=== PATIENT | male | born 1945 | race Caucasian/White ===

== ENCOUNTER 2016-06-08 10:19 | Inpatient (IN) | payer MEDICARE, OTHER ==
[~2016-06-08] VITALS: Ht 190.5 cm; Wt 132.7 kg
[~2016-06-08 10:19] MED LIST: ALBUTEROL-200 PUFFS/ IH; AMITRIPTYLINE 225 MG PO; AMITRIPTYLINE 550 MG PO; ASPIRIN 81MG TA81 MG PO; ASPIRIN EC325 MG PO; ATIVAN GENERIC0.5 MG PO; BACLOFEN20 MG PO; BISOPROLOL 5MG T5 MG PO; BUMETANIDE0.5 MG PO; CARVEDILOL6.25 MG PO; DOXYCYCLINE100 M6 PO; FLONASE 50 MCG16 GM; FUROSEMIDE40 MG PO; GABAPENTIN300 M1 PO; GLIMEPIRIDE 2MG2 MG PO; GUAIFENESIN 600 MG PO; HUMALOG100 U/ML SC; HYDROCODONE/ACE1 TA5 PO; IPRATROPIUM BROM3 M1 IH; JANUVIA50 MG PO; LASIX20 MG PO; LEVOFLOXACIN 5500 MG PO; LEVOFLOXACIN 7750 M1 PO; LIPITOR40 MG PO; LISINOPRIL 20MG20 MG PO; LISINOPRIL2.5 MG PO; LORAZEPAM0.5 MG/TAB PO; MAG-OX 400MG T400 MG PO; METFORMIN HCL1000 MG PO; NORTRIPTYLINE H75 MG PO; NYSTATIN SU60 ML/BOT PO; ONGLYZA5 MG PO; PACERONE200 MG PO; PANTOPRAZOLE SO40 M1 PO; PERCOCET 10 MG1 EACH PO; PLAVIX75 MG PO; PREDNISONE 20MG20 MG PO; PREDNISONE 5MG.5 MG PO; PROAIR HFA0.09 MG/AC IH; RANITIDINE HCL300 M1 PO; RESTORIL 15MG C15 MG PO; TAMSULOSIN HYD0.4 MG PO; TRAZODONE50 MG PO
[2016-06-08 10:21] VITALS: BP 159/85
--- NOTE | 2016-06-08 10:35 | Emergency Room Report ---
History of Present Illness Time Seen by 1021 Presenting Problem in Triage Pt arrived:Ambulance Stretcher Presenting Problem:PT SLID OUT OF CHAIR AT HOME. STATES HE HAS BEEN SHAKY, UNSTEADY, DIZZY FOR PAST COUPLE OF WEEKS. STATES TAKING ANTIBIOTICS FOR BRONCHITIS. STATES HAVING DEFIBRILLATOR. 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 Y Clinical Suspician of Infection? Y Mental Status: 1 - Regular (Normal Baseline) Sepsis Risk:Possible Sepsis Risk Have you (or family members/close friends) recently traveled outside the [place]? N If Yes, where/when: Have you had exposure to infectious disease within the past month? N TB? Other? Specify: Comment The patient complains of being weak and dizzy. He apparently slid out of her chair at home. He is brought in by ambulance. He says that he had a fever a couple of days ago and was put on amoxicillin by Dr. Umanzor. He says that he has a chronic cough due to bronchiectasis. He also says that he has chronic back pain and shoulder pain and is on oxycodone for that. No recent spinal injections , he says the last spinal injection he had was last October. He says his back pain goes away with rest. He denies vomiting or diarrhea. He denies any other pain. ALLERGIES Coded Allergies: enoxaparin (From LOVENOX) (I-HIVES 07/06/15) Home Medications Active Scripts HYDROCODONE/ACETAMINOPHEN (Hydrocodon-Acetaminophn 10-325) 1 TAB PO Q4HP PRN BREAKTHROUGH MOD TO SEV PAIN #100 TAB Prov: 05/15/13 Reported Medications Simvastatin 40 MG PO DAILY Fluticasone Propionate (Flonase 50 Mcg Nasal [place]) 1 SPRAY NA DAILY #16 NORTRIPTYLINE HCL (Nortriptyline Hydrochloride) 50 MG PO NIGHTLY Glimepiride (Glimepiride 2MG Tablet) 1 MG PO DAILY BISOPROLOL FUMARATE (Bisoprolol 5MG) 10 MG PO DAILY Gabapentin (Gabapentin 300MG) 300 MG PO TID Prednisone (Prednisone 20MG) 20 MG PO DAILY DIPHENOXYLATE HCL/ATROPINE (Lomotil 2.5-0.025 MG Tablet) 1 TAB PO Q4HS PRN DIARRHEA Lorazepam (Ativan) 0.5 MG PO TIDP PRN ANXIETY TAMSULOSIN HCL (Tamsulosin 0.4MG) 0.4 MG PO QHS Amiodarone Hcl (Pacerone) 200 MG PO BID History Medical History General CAD? No Angina: No [place]: No Hypertension? Yes Hyperlipidemia? Yes CHF? Yes DVT? No PE? No COPD? Yes Asthma? Yes Anemia? No GERD? Yes Gastric ulcers? No GI Bleed? No Hernia? No Thyroid Problems? No Hypothyroidism? No CVA? No Seizures? No Diabetes? Yes Insulin Dependent: No Insulin Pump: No Home FSBS? Yes Renal Insuffiency? No End Stage Renal Disease? No UTI? No Stones? No BPH? Yes GB Disease: No Nephritic Syndrome? No Asplenia? No Hepatitis? No Sickle Cell Disease? No Arthritis? Yes Migraines? No Cataracts? No Glaucoma? No MRSA? No HIV? No TB? No Anxiety? No Depression? No Cancer? No More? Yes Additional hx: RHEUMATIOD ARTHRITIS Immunization Hx DT/Tetanus < 1 Year Ago Flu [id number] Flu Season Pneumonia Received In Past Surgical Hx Previous Surgery?Y LUNG REMOVED SINUS HEART ANKLE THROAT DEFRIBULATORY PACER/DEFIB PLACE 08/15/14 Family History Family Hx Diabetes Yes CAD Yes Hypertension Yes Hyperlipidemia No Cancer Yes TB No Social History Smoking Hx Smoker: Former Smoker Tobacco: No Packs/day < 1 Pack Alcohol Alcohol: No Review of Systems All Other Systems Reviewed and Negative Constitutional fever, malaise, weakness Respiratory cough Musculoskeletal back pain, joint pain (shoulder) Physical Exam Vital Signs Vital Signs Date Time Temp Pulse Resp B/P Pulse O2 O2 Flow FiO2 Ox Delivery Rate 06/08 1021 103.1 78 20 159/85 92 General Appearance normal appearance, WD/WN Eye Exam - bilateral eye normal exam, bilateral eye PERRL, bilateral eye EOMI Ear, Nose, Throat hearing grossly normal, normal ENT inspection Neck normal inspection, non-tender, supple, full range of motion Respiratory Status Yes: trachea midline, chest symmetrical, non tender chest. No: respiratory distress. Lung Sounds bilateral: normal breath sounds, lungs clear. Cardiovascular normal exam, regular rate/rhythm, no peripheral edema, no gallop, no JVD, no murmur, no rub, normal peripheral pulses Peripheral Pulses Pulses normal Yes Gastrointestinal normal bowel sounds, normal exam, non tender, soft, no organomegaly Back normal inspection, no CVA tenderness, no vertebral tenderness Extremities non-tender, normal range of motion, normal inspection Neurologic alert, exhibit specialist II-XII nml as tested, normal exam, oriented x 3 Mental status normal mood/affect Skin intact, normal color, warm/dry Lymphatic no adenopathy Medical Decision Making LABS/Meds/Orders Pt receiving controlled substance in ED? No Results/Orders Laboratory Tests 06/08/16 1040: Influenza Type A Ag NOT DETECTED, Influenza Type B Ag NOT DETECTED, Urine Color YELLOW, Urine Appearance CLEAR, Urine pH 6.0, Ur Specific [place] 1.020, Urine Protein NEGATIVE, Urine Ketones NEGATIVE, Urine Blood NEGATIVE, Urine Nitrate NEGATIVE, Urine Bilirubin NEGATIVE, Urine Urobilinogen 0.2, Ur Leukocyte Esterase NEGATIVE, Urine WBC OCC, Ur Squamous Epith Cells OCC, Urine Bacteria 1+ , Hyaline Casts 3-5, Urine Mucus OCC, Urine Glucose NEGATIVE 06/08/16 1030: Lactic Acid 2.1 H 06/08/16 1030: Sodium 135 L, Potassium 5.1, Chloride 99, Carbon Dioxide 28, BUN 23 H, Creatinine 1.4 H, Estimated Creat Clear 90, Estimated GFR (MDRD) 50, Glucose 175 H, Calcium 8.6, Total Bilirubin 0.4, AST 15, ALT 31, Alkaline Phosphatase 84, Total Protein 6.5, Albumin 2.9 L, Globulin 3.6 H, Albumin/Globulin Ratio 0.8 L, WBC 18.3 H, RBC 3.84 L, Hgb 10.6 L, Hct 34.8 L, MCV 90.8, RDW 13.6, Plt Count 360, MPV 5.8 L, Gran % 81.3 H, Gran # 15.0 H, Total Counted 100, Lymphocytes % 11.2, Monocytes % 4.6, Eosinophils % 2.7, Basophils % 0.3, Neutrophils 76, Lymphocytes (Manual) 11, Lymphocytes # 2.1, Monocytes (Manual) 8 , Monocytes # 0.9, Eosinophils # 0.5 H, Eosinophils # (Manual) 4 H, Basophils # 0.1, Promyelocytes 1, Platelet Estimate NORMAL, PUBS MCHC 30.1 L, MCH 27.3 Current Medication Orders Sig/Millie Start time Last Medication Dose Route Stop Time Status Admin Levofloxacin/Dextrose 150 ML .STK-MED ONE 06/08 1107 DC IV Levofloxacin/Dextrose 150 ML ONCE ONE 06/08 1100 r 06/08 IV 06/08 1229 1110 Acetaminophen 1,000 MG ONCE ONE 06/08 1045 DC 06/08 PO 06/08 1046 1037 Sodium Chloride 10 ML PRN PRN 06/08 1045 AC IV 06/09 1032 Acetaminophen 0 .STK-MED ONE 06/08 1028 DC PO Acetaminophen 0 .STK-MED ONE 06/08 1025 DC PO Orders Procedure Date/time Status Decision to admit 06/08 1113 Active UPPER RESPIRATORY PANEL, PCR 06/08 1111 Active LACTIC ACID FOLLOW UP 06/08 1058 Active CHEST-PORTABLE 06/08 1032 Active IV SALINE LOCK 06/08 1032 Active CULTURE, BLOOD 06/08 1032 Active URINALYSIS/COMPLETE 06/08 1032 Complete LACTIC ACID 06/08 1032 Complete INFLUENZA A&B ANTIGENS 06/08 1032 Complete CBC WITH AUTO DIFF 06/08 1032 Complete CHEM 12 PROFILE 06/08 1032 Complete DIFFERENTIAL-WBC 06/08 1030 Complete XRAY/CT/US XRAY/CT/US XRAY chest Comment X-ray interpreted by Spencer Fulton M.D.: RIGHT upper lobe infiltrate, cardiomegaly Progress - 11:10 AM: I have discussed the case with Dr. Nunez who agrees to admit the patient to the hospital. We discussed the patient's clinical information, including history, exam, laboratory and radiology results and ED course. Per hospital procedure, I will write temporary bridge inpatient orders on the patient. Specific orders requested by the admitting physician: Levaquin Departure Departure Disposition Still a Patient Clinical Impression Primary Impression: Community acquired pneumonia Condition STABLE Referrals Noé SCHULTZ,Jayesh Robledo (Family) ED Critical Care Critical Care No at [phone]
[2016-06-08 10:46] LABS: URINE BILIRUBIN - DIPSTICK NEGATIVE (NEG); URINE BLOOD NEGATIVE (NEG)
[2016-06-08] MEDS ORDERED: BISOPROLOL 5MG T5 MG PO (10:50)
[2016-06-08 10:53] LABS: LYMPH # 2.1 K/mm3 (0.7-4.5); LYMPH % 11.2 % (10-50)
[2016-06-08 10:55] LABS: URINE SQUAMOUS CELLS OCC #/hpf (OCC)
[2016-06-08] MEDS ORDERED: GABAPENTIN300 MG PO (10:57)
[2016-06-08] MEDS ORDERED: PREDNISONE 20MG20 MG PO (10:58)
[2016-06-08] MEDS ORDERED: LOMOTIL 0.025 M1 TAB PO (10:58)
[2016-06-08 11:01] LABS: HEMOGLOBIN 10.6 g/dL (14.1-18.0)
[2016-06-08 11:17] LABS: NEUTROPHILS 76 % (42-76)
[2016-06-08 11:41] LABS: CORONAVIRUS 229E NOT DETECTED (NOT DETECTE); CORONAVIRUS HKU 1 NOT DETECTED (NOT DETECTE); CORONAVIRUS NL63 NOT DETECTED (NOT DETECTE); CORONAVIRUS OC43 NOT DETECTED (NOT DETECTE); RHINOVIRUS/ENTEROVIRUS NOT DETECTED (NOT DETECTE)
[2016-06-08 11:58] VITALS: BP 139/64
[2016-06-08] MEDS ORDERED: HYDROCODONE/ACE1 TA5 PO (13:29)
--- NOTE | 2016-06-08 13:56 | HISTORY AND PHYSICAL REPORT ---
Demographics: Admit date: 06/08/16 Chief complaint: weakness PRIMARY DIAGNOSIS: PNEUMONIA Allergies: Coded Allergies: enoxaparin (From LOVENOX) (I-HIVYARA 07/06/15) History of present illness: History of present illness: 71 year old white male with a history of HTN, CHF, PPM with defibrillator, DM, asthma and left lower lobectomy at age 16 presented to the ED via EMS after he slide from his chair and was unable to get up from the floor. Patient reports increase in weakness and dizziness over the last 2 weeks. He has chronic shortness of breath with sputum production which he reports is at baseline. He was seen by Dr. Umanzor approximately 2 weeks ago and started on prednisone and amoxicillin for bronchitis. He was seen again last week for persistent diarrhea x 3 days. PCR stool was negative at that time. Diarrhea has resolved. In the ED , he was found to have a fever of 103 and leukocytosis with WBC 18.3. Respiratory PCR was negative. CXR showed RUL infiltrate. Patient was admitted to acute care for IV antibiotics and further evaluation. Past medical history: Family HX Diabetes Yes CAD No Hypertension Yes Hyperlipidemia Yes Cancer Yes TB No Immunization HX DT/Tetanus Unknown Flu 2015-FSN Pneumonia Received In Past TB Test in last year No General CAD? No Angina: No [place]: No Hypertension? Yes Hyperlipidemia? Yes CHF? Yes DVT? No PE? No COPD? Yes Asthma? Yes Anemia? No GERD? Yes Gastric ulcers? No GI Bleed? No Hernia? No Thyroid Problems? No Hypothyroidism? No CVA? No Seizures? No Diabetes? Yes Insulin Dependent: No Insulin Pump: No Home FSBS? Yes Renal Insuffiency? No UTI? No Stones? No BPH? Yes GB Disease: No Nephritic Syndrome? No Asplenia? No Hepatitis? No Sickle Cell Disease? No Arthritis? Yes Migraines? No Cataracts? No Glaucoma? No MRSA? No HIV? No TB? No Anxiety? No Depression? No Cancer? No More? Yes Additional hx: RHEUMATIOD ARTHRITIS Past Surgical HX Previous Surgery?Y LUNG REMOVED SINUS HEART ANKLE THROAT DEFRIBULATORY PACER/DEFIB PLACE 08/15/14 Current home meds: Reported Medications Atorvastatin Calcium (Atorvastatin) 40 MG PO QHS NORTRIPTYLINE HCL (Nortriptyline Hydrochloride) 75 MG PO QHS HYDROCODONE/ACETAMINOPHEN (Hydrocodon-Acetaminophn 10-325) 1 TAB PO Q6HP PRN PAIN Fluticasone Propionate (Flonase 50 Mcg Nasal [place]) 1 SPRAY NA DAILY #16 Glimepiride (Glimepiride 2MG Tablet) 1 MG PO DAILY BISOPROLOL FUMARATE (Bisoprolol 5MG) 10 MG PO DAILY Gabapentin (Gabapentin 300MG) 300 MG PO TID Prednisone (Prednisone 20MG) 20 MG PO DAILY DIPHENOXYLATE HCL/ATROPINE (Lomotil 2.5-0.025 MG Tablet) 1 TAB PO Q4HS PRN DIARRHEA Lorazepam (Ativan) 0.5 MG PO TIDP PRN ANXIETY TAMSULOSIN HCL (Tamsulosin 0.4MG) 0.4 MG PO QHS Amiodarone Hcl (Pacerone) 200 MG PO BID Social Hx: Smoking HX Tobacco No Type CIGARS Packs/day < 1 PACK Are you/the child exposed to second-hand smoke: No Alcohol Alcohol: No Hx of Drug Use Drug Use? No Patien't marital status is Patient's support system is fair Review of systems: Constitutional fever, weakness. Eyes No: no symptoms reported. Ears, Nose, Mouth, Throat No ear pain, No ear discharge, nose discharge (clear, chronic), No mouth pain, No throat pain Respiratory cough, shortness of breath, SOB with excertion, wheezing (reports symptoms at baseline). Cardiovascular No no symptoms reported Gastrointestinal/Abdominal No no symptoms reported Genitourinary No: no symptoms reported. Musculoskeletal No: no symptoms reported. Skin No: no symptoms reported. Neurological Yes: weakness. No: headache, numbness. Psychiatric No: no symptoms reported. Exam: Lab data for last 24 hours: Laboratory Tests 06/08/16 1254: POC Glucose 228 H 06/08/16 1140: Chlamy pneum (TEM-PCR) NOT DETECTED, Adenovirus (PCR) NOT DETECTED, B. pertussis DNA (PCR) NOT DETECTED, Coronavirus OC43 (PCR) NOT DETECTED, Coronavirus HKU1 ( PCR) NOT DETECTED, Coronavirus 229E (PCR) NOT DETECTED, Coronavirus NL63 (PCR) NOT DETECTED, Human Metapneumovirus NOT DETECTED, Influenza A (H1) PCR NOT DETECTED, Influ A (H1N1/09) PCR NOT DETECTED, Influenza A (H3) PCR NOT DETECTED, Influenza Type A (PCR) NOT DETECTED, Influenza Type B (PCR) NOT DETECTED, M. pneumoniae (PCR) NOT DETECTED, Parainfluenza 1 (PCR) NOT DETECTED, Parainfluenza 2 (PCR) NOT DETECTED, Parainfluenza 3 (PCR) NOT DETECTED, Parainfluenza 4 (PCR) NOT DETECTED, RSV (PCR) NOT DETECTED, Entero/Rhino (PCR) NOT DETECTED 06/08/16 1040: Influenza Type A Ag NOT DETECTED, Influenza Type B Ag NOT DETECTED, Urine Color YELLOW, Urine Appearance CLEAR, Urine pH 6.0, Ur Specific [place] 1.020, Urine Protein NEGATIVE, Urine Ketones NEGATIVE, Urine Blood NEGATIVE, Urine Nitrate NEGATIVE, Urine Bilirubin NEGATIVE, Urine Urobilinogen 0.2, Ur Leukocyte Esterase NEGATIVE, Urine WBC OCC, Ur Squamous Epith Cells OCC, Urine Bacteria 1+ , Hyaline Casts 3-5, Urine Mucus OCC, Urine Glucose NEGATIVE 06/08/16 1030: Lactic Acid 2.1 H 06/08/16 1030: Sodium 135 L, Potassium 5.1, Chloride 99, Carbon Dioxide 28, BUN 23 H, Creatinine 1.4 H, Estimated Creat Clear 90, Estimated GFR (MDRD) 50, Glucose 175 H, Calcium 8.6, Total Bilirubin 0.4, AST 15, ALT 31, Alkaline Phosphatase 84, Total Protein 6.5, Albumin 2.9 L, Globulin 3.6 H, Albumin/Globulin Ratio 0.8 L, WBC 18.3 H, RBC 3.84 L, Hgb 10.6 L, Hct 34.8 L, MCV 90.8, RDW 13.6, Plt Count 360, MPV 5.8 L, Gran % 81.3 H, Gran # 15.0 H, Total Counted 100, Lymphocytes % 11.2, Monocytes % 4.6, Eosinophils % 2.7, Basophils % 0.3, Neutrophils 76, Lymphocytes (Manual) 11, Lymphocytes # 2.1, Monocytes (Manual) 8 , Monocytes # 0.9, Eosinophils # 0.5 H, Eosinophils # (Manual) 4 H, Basophils # 0.1, Promyelocytes 1, Platelet Estimate NORMAL, PUBS MCHC 30.1 L, MCH 27.3 Microbiology 06/08 1029 BLOOD: Anaerobic Blood Culture - RECD 06/08 103 BLOOD: Aerobic Blood Culture - RECD 06/08 1030 BLOOD: Anaerobic Blood Culture - RECD 06/08 1030 BLOOD: Aerobic Blood Culture - RECD Admission vital signs: 1ST Vital Signs Result Date Time Pulse Ox 92 06/08 1021 B/P 159/85 06/08 1021 Temp 103.1 06/08 1021 Pulse 78 06/08 1021 Resp 20 06/08 1021 O2 Delivery OXYGEN 06/08 1158 O2 Flow Rate 2 06/08 1230 Exam General appearance: normal appearance, alert, awake, no acute distress Eyes: anicteric ENT: dry mucous membranes Neck: normal inspection, non-tender, no JVD Cardiovascular: regular rate & rhythm, edema (1+), murmur, pacemaker, pedal pulses diminished Respiratory: rhonchi, wheezes and crackles noted on right side, left diminished with scattered wheezes ABD: non-distended, normal bowel sounds, no rebound, soft Genitourinary: no dysuria, no hematuria Extremities: moves all Musculoskeletal: equal muscle strength Skin: dry, intact Neuro: alert, no deficit, normal mood/affect, oriented, speech clear Plan: Problem List 1. Community acquired pneumonia Assessment/Plan Continue IV Levaquin and Duonebs. Tylenol PRN for fever. Obtain sputum culture if obtain to produce. Blood culture pending. Will consider PT/OT eval prior to discharge d/t ongoing deconditioning. 2. CHF (congestive heart failure), NYHA class IV Assessment/Plan Chronic. PPM with defibrillator in place. 3. Diabetes Assessment/Plan FSBS with sliding scale coverage. Plan: see above.
[2016-06-08 14:04] VITALS: BP 125/56
[2016-06-08 15:26] VITALS: BP 115/62
[2016-06-08] MEDS ORDERED: BUMETANIDE0.5 MG PO (18:38)
[2016-06-08] MEDS ORDERED: LISINOPRIL2.5 M1 PO (18:40)
--- NOTE | 2016-06-08 19:19 | RADIOLOGY REPORT PS360 ---
CHEST-PORTABLE HISTORY: fever ORDERING PHYSICIAN: Spencer Fulton MD PATIENT AGE: 71 years COMPARISON: 08/15/2014 FINDINGS: Cardiomegaly with mild pulmonary venous congestion. Cardiac pacemaker device is present.. Consolidation is present in the right upper lobe in the suprahilar region consistent with pneumonia. Recommend convalescent exam is pulmonary mass could have a similar appearance or could be obscured. No acute bony abnormalities. IMPRESSION: Mild CHF with right upper lobe pneumonia
[2016-06-08 19:38] VITALS: BP 152/59
--- NOTE | 2016-06-08 21:48 | PHARMACY CLINIC NOTE ---
Patient Demographics Patient Demographics Admission date: 06/08/16 Date: 06/08/16 Time: 2146 Allergies Coded Allergies: enoxaparin (From LOVENOX) (I-HIVES 07/06/15) HEIGHT- FT: 6 IN: 3.00 K.891 VTE General Information Labs: Laboratory Tests 06/08 1030 Hematology Hgb (14.1 - 18.0 g/dL) 10.6 L Hct (42.0 - 52.0 %) 34.8 L Plt Count (142 - 424 K/mm3) 360 Disclaimer The following section includes nursing documentation that has been pulled in for pharmacy review. Patient's VTE score: 6 Patient's VTE Risk: MOD RISK Clinical trial participant? No VTE prophylaxis NQF [id number] VTE prophylaxis ordered? Yes Type of prophylaxis/treatment: MARY at [id number]
[2016-06-08] MEDS ORDERED: BISOPROLOL FUMA10 MG PO (21:49)
[2016-06-08 23:45] VITALS: BP 104/55
[2016-06-09] VITALS (7 sets, daily range): BP systolic 135–180; BP diastolic 57–90
--- NOTE | 2016-06-09 08:24 | ACUTE CARE PROGRESS NOTE (QUA) ---
Progress Notes Subjective Date 06/09/16 Time 0730 Note Patient did not sleep well through the night due to chronic back pain. He takes [place] at home. He was able to produce a sputum sample, which was sent for culture. Continues to have some shortness of breath and weakness. No fevers through the night. Alert and oriented x3. Rate and rhythm regular, + murmur. 1+ BLE edema. Pulses 1+. Mildly bradycardic. Motor, strength and sensation equal bilaterally. Patient/family reports: pain (constant), cough, shortness of breath Nursing reports: no complaints Objective Findings Last VS-Temp:97.8 B/P:145/57 Pulse:59 Resp:18 SaO2:91 OXYGEN Last weight lbs:290 oz:1 K.57 Method:Bed Scales Reviewed: vital signs, lab results, radiology report Assessment/Plan Problem List 1. Community acquired pneumonia Assessment/Plan: Continue Levaquin and Duonebs. Sputum and blood cultures pending. Will have PT evaluate and treat for weakness and deconditioning. 2. CHF (congestive heart failure), NYHA class IV Assessment/Plan: Patient has been bradycardiac with rate 50's. He has severe cardiomyopathy with PPM w/ AICD in place.. Hold amiodarone and beta armida. Consult cardiology to evaluate medications and possible PPM interrogation. 3. Diabetes Assessment/Plan: FSBS with Sliding Scale Coverage. 4. Chronic back pain Assessment/Plan: Restart [place]. Patient condition Improving Plan: continue current care This inpt stay is expected to cross 2 MNs from start of care Yes
--- NOTE | 2016-06-09 12:38 | CONSULT NOTE ---
Standard Demographics Patient Demo Date of Consultation: 06/09/16 Referring Provider: Trevor Nunez MD Reason for Consultation: Bradycardia, Medication evaluation PRIMARY DIAGNOSIS: PNEUMONIA Problem list Problem list: 1. Ischemic Cardiomyopathy A. [place] to large, dominant RCA, 05/2013, with mild disease of LAD and Cx. EF 20% . B. Recurrent CHF C. Right and left heart cath, 07/2014, Mild to mod CAD with severe LV dilatation and dysfunction. Mildly elevated pulmonary pressures but considering severe LV systolic dysfunction, this is likely euvolemic for this patient. No intracardio-pulmonary shunting. 2. Non-sustained V. tach and severe Cardiomyopathy A. [place] [place] AICD implanted, 07/2014 B. Amiodarone and beta armida therapy 3. HTN 4. DM for greater than >10 yrs A. Peripheral neuropathy 5. COPD/Asthma A. S/P left lower lobectomy, age 16, for bronchiectasis 6. Obesity 7. Hx of Alcohol abuse (8-12 beers daily), quit 05/2013 8. Chronic low back pain 9. GERD 10. Obesity 11. Chronic anemia 12. Hyperlipidemia, on statin therapy. History of present illness: History of present illness: 71 year old white male with a history of HTN, CHF, PPM with defibrillator, DM, asthma and left lower lobectomy at age 16 presented to the ED via EMS after he slide from his chair and was unable to get up from the floor. Patient reports increase in weakness and dizziness over the last 2 weeks. He has chronic shortness of breath with sputum production which he reports is at baseline. He was seen by Dr. Umanzor approximately 2 weeks ago and started on prednisone and amoxicillin for bronchitis. He was seen again last week for persistent diarrhea x 3 days. PCR stool was negative at that time. Diarrhea has resolved. In the ED , he was found to have a fever of 103 and leukocytosis with WBC 18.3. Respiratory PCR was negative. CXR showed RUL infiltrate. Patient was admitted to acute care for IV antibiotics and further evaluation. The above per Dr. Nunez Cardiology consulted for evaluation of bradycardia and medications including amiodarone and beta armida. Patient reportedly admitted to the [facility] last year after a fall with which she sustained a broken foot. Concern was made regarding possible damage to one of the pacemaker leads. Reportedly was interrogated and the atrial lead was felt to be not working. It was reportedly turned off. Interrogation of the implantable cardiac defibrillator today shows the atrial lead is working fine. The device has been programmed at a lower rate of 40 beats per minute. The atrial lead today has been turned on and the lower rate has been increased to 60 bpm. After interrogation and reprogramming the patient's device is atrial pacing with ventricular sensing at a rate of 60 bpm. Past Medical History: General: Hypertension Yes CVA No Seizures No TB No COPD Yes Asthma Yes Diabetes Yes Insulin Dependent No Insulin Pump No Angina No AL No Hyperlipidemia Yes Urinary No Cancer No Rheumatic H.D. No Ulcers No MRSA No GB Disease No Other BACK-RISOTOMY Additional hx RHEUMATIOD ARTHRITIS Past Surgical HX: Previous Surgery?Y LUNG REMOVED SINUS HEART ANKLE THROAT DEFRIBULATORY PACER/DEFIB PLACE 08/15/14 Allergies Coded Allergies: enoxaparin (From LOVENOX) (I-HIVES 07/06/15) Home medications: Reported Medications Atorvastatin Calcium (Atorvastatin) 40 MG PO QHS NORTRIPTYLINE HCL (Nortriptyline Hydrochloride) 75 MG PO QHS HYDROCODONE/ACETAMINOPHEN (Hydrocodon-Acetaminophn 10-325) 1 TAB PO Q6HP PRN PAIN Bumetanide 0.5 MG PO DAILY #180 Lisinopril 2.5 MG PO DAILY #90 Bisoprolol Fumarate 10 MG PO DAILY #90 TAB Fluticasone Propionate (Flonase 50 Mcg Nasal [place]) 1 SPRAY NA DAILY #16 Glimepiride (Glimepiride 2MG Tablet) 1 MG PO DAILY Gabapentin (Gabapentin 300MG) 300 MG PO TID Prednisone (Prednisone 20MG) 20 MG PO DAILY DIPHENOXYLATE HCL/ATROPINE (Lomotil 2.5-0.025 MG Tablet) 1 TAB PO Q4HS PRN DIARRHEA Lorazepam (Ativan) 0.5 MG PO TIDP PRN ANXIETY TAMSULOSIN HCL (Tamsulosin 0.4MG) 0.4 MG PO QHS Amiodarone Hcl (Pacerone) 200 MG PO BID Current Medications: Current Medications Acetaminophen/Hydrocodone Bitart 0 .STK-MED ONE PO (DC) Levofloxacin/Dextrose 150 ML DAILY IV Acetaminophen/Hydrocodone Bitart 1 TAB Q6HP PRN PO Acetaminophen 0 .STK-MED ONE PO (DC) Insulin Human [rDNA origin] 0 .STK-MED ONE SC (DC) Acetaminophen 0 .STK-MED ONE PO (DC) Albuterol/Ipratropium 3 ML QIDRT INH Diagnostic Test (Pha) 1 EACH W/MEALS&HS FS Insulin Human [rDNA origin] SEE ADMIN CRITERIA FOR MEDIUM INTENSITY W/MEALS&HS SC Acetaminophen 650 MG Q4HP PRN PO Influenza Virus Vaccine Quadrival 0.5 ML PRN PRN IM Nicotine 21 MG DAILYP PRN TD Sodium Chloride 10 ML PRN PRN IV Sodium Chloride 10 ML PRN PRN IV (DC) Immunization HX DT/Tetanus Unknown Flu 2015-FSN Pneumonia RECEIVED IN PAST TB Test in last year No Family history Family HX Diabetes Yes CAD No Hypertension Yes Hyperlipidemia Yes Cancer Yes TB No Social Hx: Smoking HX Tobacco No Type CIGARS Packs/day < 1 PACK Are you/the child exposed to second-hand smoke: No Alcohol Alcohol: No Hx of Drug Use Drug Use? No Review of systems: Constitutional weakness. Respiratory see HPI, shortness of breath, SOB with excertion, SOB at rest. Cardiovascular see HPI, edema Gastrointestinal/Abdominal No no symptoms reported Genitourinary No: no symptoms reported. Musculoskeletal back pain, gout. Neurological Yes: weakness, parasthesia. Exam: Admission Vital Signs: 1ST Vital Signs Result Date Time Pulse Ox 92 06/08 1021 B/P 159/85 06/08 1021 Temp 103.1 06/08 1021 Pulse 78 / 1021 Resp 20 06/08 1021 O2 Delivery OXYGEN 06/08 1158 O2 Flow Rate 2 06/08 1230 Last Vital Signs: Vital Signs Result Date Time Pulse Ox 91 06/09 1141 B/P 153/71 06/09 1141 O2 Delivery OXYGEN 06/09 1141 Temp 97.9 06/09 1141 Pulse 62 06/09 1141 Resp 20 06/09 1141 O2 Flow Rate 2 06/09 1100 Exam General appearance: alert, awake, no acute distress Neck: JVD Cardiovascular: regular rate & rhythm, edema Respiratory: basilar rales, diminished breath sounds, rhonchi ABD: soft, no tenderness Extremities: moves all, edema Neuro: alert, intact, oriented, speech clear Laboratory data: Laboratory Tests 06/09/16 0623: POC Glucose 115 H 06/08/16 2114: POC Glucose 197 H 06/08/16 1647: POC Glucose 120 H 06/08/16 1430: Lactic Acid 1.3 06/08/16 1254: POC Glucose 228 H 06/08/16 1140: Chlamy pneum (TEM-PCR) NOT DETECTED, Adenovirus (PCR) NOT DETECTED, B. pertussis DNA (PCR) NOT DETECTED, Coronavirus OC43 (PCR) NOT DETECTED, Coronavirus HKU1 ( PCR) NOT DETECTED, Coronavirus 229E (PCR) NOT DETECTED, Coronavirus NL63 (PCR) NOT DETECTED, Human Metapneumovirus NOT DETECTED, Influenza A (H1) PCR NOT DETECTED, Influ A (H1N1/09) PCR NOT DETECTED, Influenza A (H3) PCR NOT DETECTED, Influenza Type A (PCR) NOT DETECTED, Influenza Type B (PCR) NOT DETECTED, M. pneumoniae (PCR) NOT DETECTED, Parainfluenza 1 (PCR) NOT DETECTED, Parainfluenza 2 (PCR) NOT DETECTED, Parainfluenza 3 (PCR) NOT DETECTED, Parainfluenza 4 (PCR) NOT DETECTED, RSV (PCR) NOT DETECTED, Entero/Rhino (PCR) NOT DETECTED 06/08/16 1040: Influenza Type A Ag NOT DETECTED, Influenza Type B Ag NOT DETECTED, Urine Color YELLOW, Urine Appearance CLEAR, Urine pH 6.0, Ur Specific [place] 1.020, Urine Protein NEGATIVE, Urine Ketones NEGATIVE, Urine Blood NEGATIVE, Urine Nitrate NEGATIVE, Urine Bilirubin NEGATIVE, Urine Urobilinogen 0.2, Ur Leukocyte Esterase NEGATIVE, Urine WBC OCC, Ur Squamous Epith Cells OCC, Urine Bacteria 1+ , Hyaline Casts 3-5, Urine Mucus OCC, Urine Glucose NEGATIVE 06/08/16 1030: Lactic Acid 2.1 H 06/08/16 1030: Sodium 135 L, Potassium 5.1, Chloride 99, Carbon Dioxide 28, BUN 23 H, Creatinine 1.4 H, Estimated Creat Clear 90, Estimated GFR (MDRD) 50, Glucose 175 H, Calcium 8.6, Total Bilirubin 0.4, AST 15, ALT 31, Alkaline Phosphatase 84, Total Protein 6.5, Albumin 2.9 L, Globulin 3.6 H, Albumin/Globulin Ratio 0.8 L, WBC 18.3 H, RBC 3.84 L, Hgb 10.6 L, Hct 34.8 L, MCV 90.8, RDW 13.6, Plt Count 360, MPV 5.8 L, Gran % 81.3 H, Gran # 15.0 H, Total Counted 100, Lymphocytes % 11.2, Monocytes % 4.6, Eosinophils % 2.7, Basophils % 0.3, Neutrophils 76, Lymphocytes (Manual) 11, Lymphocytes # 2.1, Monocytes (Manual) 8 , Monocytes # 0.9, Eosinophils # 0.5 H, Eosinophils # (Manual) 4 H, Basophils # 0.1, Promyelocytes 1, Platelet Estimate NORMAL, PUBS MCHC 30.1 L, MCH 27.3 Microbiology Date/Time Procedure - Status Source Growth 06/08 1813 Sputum Culture - RES SPUTUM 06/08 181 Gram Stain - RES SPUTUM 06/08 1030 Anaerobic Blood Culture - RES BLOOD 06/08 1030 Aerobic Blood Culture - RES BLOOD 06/08 1030 Anaerobic Blood Culture - RES BLOOD 06/08 1030 Aerobic Blood Culture - RES BLOOD Plan: Assessment: 1. Bradycardia secondary to medications and lower rate of 40 bpm in AICD/ pacemaker program. 2. Ischemic CM with current echo showing EF of 45% with mild inferior hypokinesis. Clinically no significant evidence of volume overload. 3. Pneumonia 4. History of Non-sustained V. Tach and frequent PVC's for which patient has been on amiodarone and beta blockers. No evidence of V. tach on interrogation today. Recommendations: 1. Lower rate of pacemaker set to 60 bpm and atrial lead turned on again. 2. Add losartan 50 mg daily and Toprol XL 25 mg daily, discontinue bisoprolol and lisinopril. 3. Reduce lasix to 40 mg daily 4. Follow serial BMP at 8029
--- NOTE | 2016-06-09 16:03 | RADIOLOGY REPORT PS360 ---
PROCEDURE: 2-D M-mode and color Doppler study INDICATIONS FOR THE TEST: Chest pain + COPD Heart Murmur Tobacco Smoking Palpitations Fatigue Syncope Edema+ Hypertension+Diabetes Mellitus+ Rheumatic Fever SOB MOODY Obesity+Hyperlipidemia Family History HD Additional History ICD PATIENT INFORMATION HEIGHT: 75 WEIGHT:290 GENDER: Male B/P:159/85 2-D/M-MODE INTERPRETATION: 2-D MEASUREMENTS OBSERVED VALUES IN CMS Right Ventricular Dimension (RVDd) 3.2 Interventricular Septum (Thickness)(IVsd) 2.1 Left Ventricular Internal Dimensions(LVIDd) 6.3 Left Ventricular Posterior Wall (Thickness)(LVPWd) 1.3 Aortic Root 4.2 Aortic Cusp Separation 2.6 Left Atrial Dimensions (LAD) 5.0 2D 1. The left atrium is mildly enlarged left ventricle is normal size there is mild concentric left ventricular hypertrophy present visually estimated ejection fraction approximately 45-50% there appears to be mild hypokinesis involving the infero basal and posterobasal wall. 2. The right atrium is normal size, the right ventricle is mildly enlarged with normal contractility. There is a catheter noted in the right atrium and right ventricle which is likely a pacemaker or an AICD lead. 3. The aortic valve is thickened and fibrosed, consistent with aortic sclerosis. 4. The mitral valve has mitral calcification there is no mitral stenosis. 5. The tricuspid valve restructure normal. 6. The pulmonic valve is not well visualized. 7. No significant pericardial effusion noted. DOPPLER INTERROGATION: Doppler interrogation of the aortic mitral and tricuspid valve reveals presence of mild mitral and tricuspid regurgitation, tricuspid regurgitant jet velocity is insufficient for calculation of the right ventricular systolic pressure, grade 1 diastolic dysfunction seen without Doppler evidence of raised left atrial pressure. Inferior vena cava appears to be collapsing normally. CONCLUSION: 1. Mildly enlarged left atrium normal left ventricular size, mild concentric left ventricular hypertrophy, visually estimated ejection fraction of 45-50% with segmental wall motion abnormalities as described above. 2. Mild mitral and tricuspid regurgitation. 3. Grade 1 diastolic dysfunction without Doppler evidence of raised left atrial pressure. 4. No significant pericardial effusion noted.
[2016-06-10] VITALS (8 sets, daily range): BP systolic 147–186; BP diastolic 74–87
[2016-06-10 06:44] LABS: LYMPH % 22.9 % (10-50)
[2016-06-10 07:00] LABS: HEMOGLOBIN 9.5 g/dL (14.1-18.0)
--- NOTE | 2016-06-10 07:56 | ACUTE CARE PROGRESS NOTE (QUA) ---
Progress Notes Subjective Date 06/10/16 Time 0754 Note Events of yesterday noted vis--vis cardiology consultation and pacemaker device setting change. The patient this morning feels somewhat better, but continues to feel "winded" when he gets up and goes to the bathroom. He is alert, talkative, pleasant. Lung bowman are clearer with only minimal rhonchi at both bases, but good air movement. Heart rate regular. Abdomen soft, no edema. Sputum culture with preliminary Gram stain of gram-positive diplococci Objective Findings Last VS-Temp:97.0 B/P:168/81 Pulse:61 Resp:16 SaO2:99 ROOM AIR Last weight lbs:290 oz:0 K.542 Method:Bed Scales Assessment/Plan Problem List 1. Community acquired pneumonia 2. CHF (congestive heart failure), NYHA class IV 3. Diabetes 4. Chronic back pain Patient condition Improving, patient improving from a pneumonia standpoint. Heart rate also improving with 3 sets of pacemaker. Echocardiogram reviewed showing stage I/[place] [employer] class I heart failure. Watch fluid intakes carefully. This inpt stay is expected to cross 2 MNs from start of care Yes at 0755
--- NOTE | 2016-06-10 08:37 | ACUTE CARE PROGRESS NOTE (QUA) ---
Progress Notes Subjective Date 06/10/16 Time 0821 Note 71 yo WM in bed in NAD. Restless night but no complaints of pain. Objective Findings Last VS-Temp:97.7 B/P:164/74 Pulse:70 Resp:18 SaO2:99 ROOM AIR Last weight lbs:290 oz:0 K.542 Method:Bed Scales Exam General appearance: alert, awake, no acute distress Neck: no JVD Cardiovascular: regular rate & rhythm Respiratory: diminished breath sounds, rhonchi Extremities: moves all, trace edema of LE's Neuro: alert, intact, oriented Assessment/Plan Problem List 1. Community acquired pneumonia 2. CHF (congestive heart failure), NYHA class IV Assessment/Plan: Improved. 3. Diabetes 4. Chronic back pain 5. Hypertension 6. Cardiomyopathy Assessment/Plan: Continue ARB and beta armida and uptitrate as tolerated. Qualifiers: Cardiomyopathy type: ischemic Qualified Code: I25.5 - Ischemic cardiomyopathy Patient condition Stable Plan: Clinically improved. Flat in bed with no SOA/dyspnea. Will follow up as outpatient in 2 wks. This inpt stay is expected to cross 2 MNs from start of care Yes at 0836
[2016-06-11 04:16] VITALS: BP 176/81
[2016-06-11 07:44] VITALS: BP 150/67
[2016-06-11] MEDS ORDERED: OMNICEF 300 MG300 MG PO (08:41)
[2016-06-11] MEDS ORDERED: PREDNISONE 20MG20 MG PO (08:42)
--- NOTE | 2016-06-11 08:43 | ACUTE CARE PROGRESS NOTE (QUA) ---
Progress Notes Subjective Date 06/11/16 Time 0842 Note Overall patient feeling much better. Has been able to move around the room with minimal shortness of air. On exam patient is pleasant, alert, oriented. Lungs are much clearer, with continued rhonchi but much less crackles and symmetric aeration. Heart rate regular. No murmurs are noted today. Minimal ankle edema. Objective Findings Last VS-Temp:97.5 B/P:150/67 Pulse:63 Resp:20 SaO2:94 ROOM AIR Last weight lbs:292 oz:9 K.704 Method:Bed Scales Assessment/Plan Problem List 1. Community acquired pneumonia 2. CHF (congestive heart failure), NYHA class IV 3. Diabetes 4. Chronic back pain 5. Hypertension 6. Cardiomyopathy Qualifiers: Cardiomyopathy type: ischemic Qualified Code: I25.5 - Ischemic cardiomyopathy Patient condition Improving Plan: initiate discharge plan This inpt stay is expected to cross 2 MNs from start of care Yes at 0843
--- NOTE | 2016-06-11 08:45 | DISCHARGE SUMMARY STANDARD ---
Demographics Admit date: 06/08/16 Discharge date: 06/11/16 History of present illness History of present illness 71 year old white male with a history of HTN, CHF, PPM with defibrillator, DM, asthma and left lower lobectomy at age 16 presented to the ED via EMS after he slide from his chair and was unable to get up from the floor. Patient reports increase in weakness and dizziness over the last 2 weeks. He has chronic shortness of breath with sputum production which he reports is at baseline. He was seen by Dr. Umanzor approximately 2 weeks ago and started on prednisone and amoxicillin for bronchitis. He was seen again last week for persistent diarrhea x 3 days. PCR stool was negative at that time. Diarrhea has resolved. In the ED , he was found to have a fever of 103 and leukocytosis with WBC 18.3. Respiratory PCR was negative. CXR showed RUL infiltrate. Patient was admitted to acute care for IV antibiotics and further evaluation. Cardiology consulted for evaluation of bradycardia and medications including amiodarone and beta armida. Cardiology consult note below: Patient reportedly admitted to the [facility] last year after a fall with which she sustained a broken foot. Concern was made regarding possible damage to one of the pacemaker leads. Reportedly was interrogated and the atrial lead was felt to be not working. It was reportedly turned off. Interrogation of the implantable cardiac defibrillator today shows the atrial lead is working fine. The device has been programmed at a lower rate of 40 beats per minute. The atrial lead today has been turned on and the lower rate has been increased to 60 bpm. After interrogation and reprogramming the patient's device is atrial pacing with ventricular sensing at a rate of 60 bpm. Hospital Course Hospital Course: Patient was admitted, placed on IV antibiotics and Solu-Medrol and cardiology was consulted. Please see note embedded in the history of present illness noted above. Patient felt much better after appropriate programming of his pacemaker and bradycardia resolved. He was restarted on his regular cardiac medications. Sputum culture revealed gram-positive diplococci however final result was "normal blayne." Patient had one bottle out of 4 positive for staph hominis, but his quick improvement with standard antibiotic therapy, the high likelihood of contaminant and the characteristics of the resistance/sensitivity profile of this organism indicates that this was a contaminant. Patient improved this morning, please see my daily progress note for details. Patient we discharged home on cefdinir twice a day for a week, prednisone in a slightly higher dose than his baseline. He has oxygen therapy and nebulizers at home. He will follow-up with his primary mails supervisor next week, Dr. Umanzor, and with cardiology consultation here to reevaluate his pacemaker situation in a week and a half. Discharge diagnoses Problem List 1. Community acquired pneumonia 2. CHF (congestive heart failure), NYHA class IV 3. Diabetes 4. Chronic back pain 5. Hypertension 6. Cardiomyopathy Medications Medications: Discharge meds are as noted. Follow up Follow up in office in: 3 DAYS with: Jayesh Umanzor MD at 0845
[2016-06-11 10:00] VITALS: BP 146/76
== END 2016-06-11 11:30 | disposition home or self-care (01) | DRG 195 ==
LOC: ER 10:19 → 2ND 11:16 → ER 11:16 → 2ND 11:26
PROVIDERS: Emergency Medicine; Internal Medicine Adolescent Medicine
DX: J18.9 Pneumonia, unspecified organism (principal); I50.9 Heart failure, unspecified; E11.9 Type 2 diabetes mellitus without complications; I10 Essential (primary) hypertension; I25.5 Ischemic cardiomyopathy; Z95.810 Presence of automatic (implantable) cardiac defibrillator; Z90.2 Acquired absence of lung [part of]
CPT/HCPCS: J3370

== ENCOUNTER → 2017-01-18 | Outpatient (CLI) | payer MEDICARE, OTHER ==
[~2017-01-18] MED LIST changes: +BISOPROLOL FUMA10 MG PO; +GABAPENTIN300 MG PO; +LISINOPRIL2.5 M1 PO; +LOMOTIL 0.025 M1 TAB PO; +OMNICEF 300 MG300 MG PO; +VOLTAREN100 GM TP
[2017-01-18 18:36] LABS: BUN 13 mg/dL (7-18)
[2017-01-18 18:37] LABS: GFR (ESTIMATED) 66 ML/MIN (>60)
[2017-01-20 10:40] LABS: Creatinine, Urine 22.2 mg/dL (Not Estab.); Microalbumin, Urine <3.0 ug/mL (Not Estab.)
== END ==
LOC: LAB 15:29
PROVIDERS: Internal Medicine
DX: E11.42 Type 2 diabetes mellitus with diabetic polyneuropathy (principal); E78.5 Hyperlipidemia, unspecified; I25.10 Atherosclerotic heart disease of native coronary artery without angina pectoris; I10 Essential (primary) hypertension; I50.22 Chronic systolic (congestive) heart failure; J44.9 Chronic obstructive pulmonary disease, unspecified